=== PATIENT | male | born 1940 | race Caucasian/White ===

== ENCOUNTER 2021-07-13 06:52 | Inpatient (IN) ==
[2021-06-30 12:28] LABS: Basophils # 0.1 10*3/uL (0.0-0.2); Basophils % 0.8 % (0.0-0.8); Eosinophils # 0.3 10*3/uL (0.0-0.87); Eosinophils % 3.4 % (0.00-10.9); Hematocrit 39.2 VOL% (42.0-52.0); Hemoglobin 11.9 GM/DL (14.0-18.0); Immature Granulocytes % 0.4 %; Immature Granulocytes Absolute 0.03 #; Lymphocytes # 2.5 10*3/uL (1.4-4.0); Lymphocytes % 28.8 % (21.2-54.2); Mean Corpuscular HGB Conc 30.4 GM/DL (32-36); Mean Corpuscular Volume 88.5 FL (87-102); Mean Platelet Volume 10.3 FL (9.6-12.0); Monocytes % 8.7 % (1.7-12.7); Neutrophils % 57.9 % (38.7-73.9); Platelet Count 334 T/CUMM (130-400); Red Blood Count 4.43 MC/CUMM (3.8-5.5); Red Cell Distribution Width 13.9 % (9.3-17.3); White Blood Count 8.5 T/CUMM (4-12)
[2021-06-30 12:37] LABS: PT Patient Result 10.7 SECS (10.5-12.0)
[2021-06-30 12:53] LABS: Bilirubin,Total 0.6 MG/DL (0.20-1.00); Calcium 9.3 MG/DL (8.5-10.1); Osmolality,Calculated 283.1 MOS/KG (273-304); Potassium 4.4 MMOL/L (3.5-5.1)
[2021-07-13] MEDS: LACTATED RINGERS 1,000 ML IV SCH ×2 (07:05→13:51)
[2021-07-13] MEDS ORDERED: HEPARIN/NACL 0.9% 2 UNITS/ML 6,000 UNIT/3,000 ML BAG IV ONE (07:07)
[2021-07-13] MEDS ORDERED: HEPARIN/NACL 0.9% 2 UNITS/ML 1,000 UNIT/500 ML BAG IV ONE (08:09)
[2021-07-13] MEDS ORDERED: HYDROmorphone 2 MG/1 ML VIAL IV PRN (10:14)
[2021-07-13] MEDS ORDERED: GLUCAGON 1 MG VIAL IM PRN (10:18)
[2021-07-13] MEDS ORDERED: DEXTROSE 50% 25 GM/50 ML VIAL IV PRN (10:18)
[2021-07-13] MEDS ORDERED: HEPARIN 10,000 UNIT/10 ML VIAL ONE (10:32)
[2021-07-13] MEDS ORDERED: LIDOCAINE 2% 5 ML VIAL ONE (10:32)
[2021-07-13] MEDS ORDERED: SEVOFLURANE 1 UNIT/15 MINUTE INH ONE (10:32)
[2021-07-13] MEDS ORDERED: propofoL 200 MG/20 ML VIAL IV ONE (10:32)
[2021-07-13] MEDS ORDERED: NEOSTIGMINE 10 MG/10 ML VIAL ONE (10:32)
[2021-07-13] MEDS ORDERED: DEXAMETHASONE 4 MG/1 ML VIAL ONE (10:33)
[2021-07-13] MEDS ORDERED: ePHEDrine 50 MG/ML VIAL ONE (10:33)
[2021-07-13] MEDS ORDERED: fentaNYL 100 MCG/2 ML VIAL ONE (10:33)
[2021-07-13] MEDS ORDERED: PHENYLEPHRINE 10 MG/1 ML VIAL IV ONE (10:33)
[2021-07-13] MEDS ORDERED: PROTAMINE SULFATE 50 MG/5 ML VIAL IV ONE (10:34)
[2021-07-13] MEDS ORDERED: GLYCOPYRROLATE 0.4 MG/2 ML VIAL ONE (10:34)
[2021-07-13] MEDS ORDERED: PHENYLEPHRINE DRIP 20 MG/250 ML PREMIX IV ONE (10:34)
[2021-07-13] MEDS ORDERED: ETOMIDATE 40 MG/20 ML VIAL IV ONE (10:34)
[2021-07-13] MEDS ORDERED: ONDANSETRON 4 MG/2 ML VIAL ONE (10:34)
[2021-07-13] MEDS ORDERED: SODIUM CHLORIDE 0.9% 100 ML IV ONE (10:35)
[2021-07-13] MEDS ORDERED: ROCURONIUM 50 MG/5 ML VIAL IV ONE (10:35)
[2021-07-13] MEDS ORDERED: LACTATED RINGERS 1,000 ML IV ONE (10:35)
[2021-07-13] MEDS: INSULIN REGULAR 100 UNIT/ML SUBCUT SCH ×3 (12:46→20:47)
[2021-07-13] MEDS ORDERED: TERAZOSIN 5 MG CAPSULE PO SCH (21:00)
[2021-07-14] MEDS: LACTATED RINGERS 1,000 ML IV SCH ×3 (01:43→05:22)
[2021-07-14 07:26] LABS: Hemoglobin 10.9 GM/DL (14.0-18.0)
[2021-07-14 07:36] LABS: Calcium 9.1 MG/DL (8.5-10.1); Osmolality,Calculated 282.3 MOS/KG (273-304); Potassium 3.8 MMOL/L (3.5-5.1)
[2021-07-14] MEDS ORDERED: amLODIPine 10 MG TABLET PO SCH (09:00)
[2021-07-14] MEDS ORDERED: allopurinoL 100 MG TABLET PO SCH (09:00)
[2021-07-14] MEDS ORDERED: ASPIRIN EC 81 MG TABLET PO SCH (09:00)
[2021-07-14] MEDS: INSULIN REGULAR 100 UNIT/ML SUBCUT SCH (09:44)
[2021-07-14 11:26] VITALS: BP 130/58
== END 2021-07-14 11:45 | disposition home or self-care (01) | DRG 269 ==
LOC: N.OR 06:52 → N.SDSINP 06:53 → EDSTATUS 07:00 → N.SDSINP 10:14 → N.3E 10:53
PROVIDERS: ADMIT Surgery; ATTEND Surgery
PROC: IRERAAA (2021-07-13 07:05)